=== PATIENT | female | born 1995 | race African-American/Black ===

== ENCOUNTER 2019-07-08 04:59 | Inpatient (IN) ==
[2019-07-08] MEDS ORDERED: MEPERIDINE 25 MG/1 ML VIAL IV PRN (05:22)
[2019-07-08] MEDS ORDERED: MEPERIDINE 50 MG/1 ML VIAL IV PRN (05:22)
[2019-07-08] MEDS ORDERED: ONDANSETRON 4 MG/2 ML VIAL IV PRN ×2 (05:22→14:22)
[2019-07-08] MEDS ORDERED: LACTATED RINGERS 250 ML IV ONE (05:22)
[2019-07-08] MEDS ORDERED: BUTORPHANOL 2 MG/ML VIAL IV PRN (05:22)
[2019-07-08] MEDS ORDERED: OXYTOCIN/LR 20 UNIT/1,000 ML BAG IV SCH (05:30)
[2019-07-08] MEDS: LACTATED RINGERS 1,000 ML IV SCH ×2 (05:40→10:48)
[2019-07-08 05:56] LABS: Basophils % 0.2 % (0.0-0.8); Eosinophils # 0.1 10*3/uL (0.0-0.87); Eosinophils % 1.1 % (0.00-10.9); Hematocrit 36.7 VOL% (35.7-47.0); Hemoglobin 11.2 GM/DL (12.0-16.0); Immature Granulocytes % 0.6 %; Immature Granulocytes Absolute 0.07 #; Lymphocytes % 16.3 % (21.3-54.2); Mean Corpuscular HGB Conc 30.5 GM/DL (32-36); Mean Corpuscular Volume 81.7 FL (87-102); Mean Platelet Volume 12.8 FL (9.6-12.0); Monocytes % 7.2 % (1.7-12.7); Neutrophils % 74.6 % (38.7-73.9); Platelet Count 217 T/CUMM (130-400); Red Blood Count 4.49 MC/CUMM (3.8-5.5); Red Cell Distribution Width 16.1 % (9.3-17.3); White Blood Count 12.3 T/CUMM (4-12)
[2019-07-08] MEDS ORDERED: AMPICILLIN INJ 2,000 MG in SODIUM CHLORIDE 0.9% 100 ML IV ONE (06:08)
[2019-07-08 06:26] LABS: Alanine Aminotransferase 14 U/L (13-56); Albumin 2.8 G/DL (3.4-5.0); Alkaline Phosphatase 120 U/L (45-117); Aspartate Amino Transferase 24 U/L (0-37); Bilirubin,Total < 0.39 MG/DL (0.2-1.0); Blood Urea Nitrogen 11 MG/DL (7-18); Calcium 8.7 MG/DL (8.5-10.1); Estimated Glom Filtration Rate 114 ML/MIN; Glucose 81 MG/DL (74-106); Osmolality,Calculated 263.4 MOS/KG (273-304); Total Protein 7.5 G/DL (6.4-8.3)
[2019-07-08] MEDS ORDERED: FAMOTIDINE 20 MG/2 ML VIAL IV ONE (08:12)
[2019-07-08] MEDS ORDERED: diphenhydrAMINE 50 MG/1 ML VIAL IV PRN ×2 (08:12)
[2019-07-08] MEDS ORDERED: ePHEDrine 50 MG/ML AMP IV PRN (08:12)
[2019-07-08] MEDS ORDERED: LACTATED RINGERS 1,000 ML IV ONE (08:12)
[2019-07-08] MEDS ORDERED: NALOXONE 0.4 MG/ML VIAL IV PRN (08:12)
[2019-07-08] MEDS ORDERED: CITRIC ACID/SODIUM CITRATE 30 ML UDCUP PO ONE (08:12)
[2019-07-08] MEDS ORDERED: fentaNYL 2 MCG/ROPIV 0.2% EPID 100 ML EPIDURAL SCH (08:30)
[2019-07-08] MEDS ORDERED: AMPICILLIN INJ 1,000 MG in SODIUM CHLORIDE 0.9% 100 ML IV SCH (10:30)
[2019-07-08 10:57] LABS: Apearance,Urine CLEAR (Clear); Bilirubin,Urine Negative (Negative); Blood, Urine Negative (Negative); Glucose,Urine (UA) Negative (Negative); Ketones,Urine Negative (Negative); Nitrite,Urine Negative (Negative); Protein,Urine Negative; RBC,Urine 2 /HPF (0-4); Urine Color Yellow (Yellow); Urine Urobilinogen < 2.0 EU/DL (0.2-1.0); WBC,Urine <1 /HPF (0-6)
[2019-07-08] MEDS ORDERED: miSOPROStoL 200 MCG TABLET ONE (13:48)
[2019-07-08] MEDS ORDERED: TRANEXAMIC ACID 1,000 MG/10 ML VIAL ONE (13:48)
[2019-07-08] MEDS ORDERED: OXYTOCIN/LR 20 UNIT/1,000 ML BAG IV ONE ×2 (13:48→14:22)
[2019-07-08] MEDS ORDERED: METHYLERGONOVINE 0.2 MG/1 ML AMP ONE (13:48)
[2019-07-08] MEDS ORDERED: CARBOPROST TROMETHAMINE 250 MCG/ML AMP IM ONE (13:49)
[2019-07-08] MEDS ORDERED: WITCH HAZEL PADS 100/JAR TOP PRN (14:22)
[2019-07-08] MEDS ORDERED: HYDROCORTISONE 2.5% RECTAL CREAM 30 GM TUBE TOP PRN (14:22)
[2019-07-08] MEDS ORDERED: DIPH/TET/ACEL PERT BOOSTER VACCINE 0.5 ML VIAL IM ONE (14:22)
[2019-07-08] MEDS ORDERED: ACETAMINOPHEN 325 MG TABLET PO PRN (14:22)
[2019-07-08] MEDS ORDERED: LANOLIN 50% CREAM 0.3 OZ TUBE TOP PRN (14:22)
[2019-07-08] MEDS ORDERED: MEASLES/MUMPS/RUBELLA VACCINE 0.5 ML VIAL SUBCUT ONE (14:22)
[2019-07-08] MEDS ORDERED: BENZOCAINE 20%/MENTHOL 0.5% SPRAY 56 GM CAN TOP PRN (14:22)
[2019-07-08] MEDS ORDERED: RHO(D) IMMUNE GLOBULIN 300 MCG SYRINGE IM ONE (14:22)
[2019-07-08] MEDS ORDERED: oxyCODONE/ACETAMINOPHEN 5-325 MG TABLET PO PRN ×2 (14:22)
[2019-07-08] MEDS ORDERED: BISACODYL 10 MG SUPP RECTAL PRN (14:22)
[2019-07-08] MEDS: IBUPROFEN 800 MG TABLET PO PRN (17:24)
[2019-07-08] MEDS: DOCUSATE SODIUM 100 MG CAPSULE PO SCH (20:24)
[2019-07-09] MEDS: IBUPROFEN 800 MG TABLET PO PRN ×2 (04:28→20:26)
[2019-07-09 06:15] LABS: Basophils % 0.2 % (0.0-0.8); Eosinophils # 0.2 10*3/uL (0.0-0.87); Eosinophils % 1.5 % (0.00-10.9); Hematocrit 33.5 VOL% (35.7-47.0); Hemoglobin 10.7 GM/DL (12.0-16.0); Immature Granulocytes % 0.5 %; Immature Granulocytes Absolute 0.07 #; Lymphocytes # 1.7 10*3/uL (1.4-4.0); Lymphocytes % 12.5 % (21.3-54.2); Mean Corpuscular HGB Conc 31.9 GM/DL (32-36); Mean Corpuscular Volume 79.8 FL (87-102); Monocytes % 7.5 % (1.7-12.7); Neutrophils % 77.8 % (38.7-73.9); Platelet Count 193 T/CUMM (130-400); Red Cell Distribution Width 16.1 % (9.3-17.3); White Blood Count 13.5 T/CUMM (4-12)
[2019-07-09] MEDS: DOCUSATE SODIUM 100 MG CAPSULE PO SCH ×2 (09:25→20:25)
[2019-07-10] MEDS ORDERED: ACETAMINOPHEN/CODEINE 300-30 MG TABLET PO PRN ×2 (00:49)
[2019-07-10 07:13] VITALS: BP 100/67
[2019-07-10] MEDS: DOCUSATE SODIUM 100 MG CAPSULE PO SCH (08:20)
== END 2019-07-10 10:50 | disposition home or self-care (01) | DRG 560 ==
LOC: N.LDOUT 04:59 → N.LD 05:01 → N.OB 17:18
PROVIDERS: ADMIT Obstetrics & Gynecology; ATTEND Obstetrics & Gynecology